=== PATIENT | male | born 1955 | race Caucasian/White ===

== ENCOUNTER → 2016-12-17 | Outpatient (CLI) | payer MEDICARE ==
[~2016-12-17] MED LIST: B COMPLEX1 EACH PO; COREG 25MG TAB25 MG PO; FORTAMET500 MG PO; GLUCOTROL XL10 MG PO; LASIX20 MG PO; LIPITOR TAB 2020 MG PO; NITROGLYCERIN0.4 MG SL; PROTONIX 40 MG40 M1 PO; VASOTEC2.5 MG PO; VISTARIL25 MG PO; VITAMIN C 500500 MG PO
== END ==
LOC: CT 10:56
DX: C34.12 Malignant neoplasm of upper lobe, left bronchus or lung (principal); C78.2 Secondary malignant neoplasm of pleura; D64.9 Anemia, unspecified; Z85.46 Personal history of malignant neoplasm of prostate; R91.8 Other nonspecific abnormal finding of lung field
CPT/HCPCS: 71260; J7050; Q9962